=== PATIENT | male | born 1955 | race Caucasian/White ===

== ENCOUNTER 2023-02-20 05:43 | Day surgery (SDC) | payer MEDICARE, BC ==
[~2023-02-20] VITALS: Ht 188 cm; Wt 86.3 kg
[2023-02-20] VITALS (15 sets, daily range): BP systolic 138–177; BP diastolic 68–96; PULSE 63–90; RESP 13–19; TEMP 98.6; O2SAT 95–100
[~2023-02-20 05:43] MED LIST: DIAZ5TAB PO; OMEP20CA15 PO; RAME8TAB15 PO; VALA500T41; famotidine 20mg tablet PO ONE; oxymetazoline 15 ML nasal spray NS ONE; ringers solution, lacted 1,000 ML IV SCH; tranexamic acid inj. 1,000 MG in normal saline IV soln 100ML IV ONE
[2023-02-20] MEDS ORDERED: methylPREDNISolone acetate 80mg/ml inj**IM only ONE (06:38)
[2023-02-20] MEDS ORDERED: mupirocin 2% ointment 22GM ONE (06:38)
[2023-02-20] MEDS ORDERED: oxymetazoline 15 ML nasal spray NS ONE (06:38)
[2023-02-20] MEDS ORDERED: cocaine 4% topical solution 4ml bottle ONE (06:38)
[2023-02-20] MEDS ORDERED: epiNEPHrine 1 mg/ml 30ml MDV ONE (06:38)
[2023-02-20] MEDS ORDERED: LIDOcaine 1% W/epiNEPHrine 1:100,000 20ml vial ONE (06:38)
[2023-02-20] MEDS ORDERED: tranexamic acid 100mg/ml inj. ONE (06:40)
[2023-02-20] MEDS ORDERED: sevoflurane 250ml liquid IH ONE (08:13)
[2023-02-20] MEDS ORDERED: propofol inj 20 ML IV ONE (08:14)
[2023-02-20] MEDS ORDERED: fentaNYL/PF 50MCG/1 ML 2ML syringe ONE (08:14)
[2023-02-20] MEDS ORDERED: midazolam 1 mg/ML 2ml injection ONE (08:14)
[2023-02-20] MEDS ORDERED: ondansetron/PF 4mg/2ml inj ONE (08:43)
[2023-02-20] MEDS ORDERED: dexamethasone sod phosphate 4mg/ml inj. ONE (08:43)
[2023-02-20] MEDS ORDERED: ondansetron/PF 4mg/2ml inj IV PRN (08:55)
[2023-02-20] MEDS ORDERED: ringers solution, lacted 1,000 ML IV SCH (08:55)
[2023-02-20] MEDS ORDERED: proCHLORperazine 10 MG/2 ml inj IV PRN (08:55)
[2023-02-20] MEDS ORDERED: morphine 2 MG/ML inj. syringe IV PRN (08:55)
[2023-02-20] MEDS ORDERED: morphine 4 MG/ML inj SYRINge IV PRN (08:55)
[2023-02-20] MEDS ORDERED: meperidine/PF 25mg/ml syringe IV PRN ×3 (08:55)
--- NOTE | 2023-02-20 09:22 | NUR ---
Received from OR via [facility], accompanied by Anesthesiologist DR MICHAEL and report given by Anesthesiologist AND SHIPPING PACKER. PT DROWSY, DENIES PAIN, BILAT COTTONNOIDS IN PLACE, NO DRAINAGE. Addendum: 02/20/23 at 0947 by Jami Danielson RN Amended: Links added.
[2023-02-20] MEDS ORDERED: mupirocin 2% nasal ointment 1gm UD NS SCH (09:44)
[2023-02-20] MEDS ORDERED: oxymetazoline 15 ML nasal spray NS PRN (09:45)
[2023-02-20] MEDS ORDERED: salt irrigation nasal spray 45 ML SPRAY NS PRN (09:50)
[2023-02-20] MEDS: hydrALAZINE 20mg/ml inj. IV PRN ×3 (10:24→11:01)
--- NOTE | 2023-02-20 11:44 | NUR ---
PT UP AND STABLE W/AMBULATION, STATES HE IS COMFORTABLE, VOIDED X 1, GETTING DRESSED AND IS READY FOR DISCHARGE, WAITING FOR HIS TO [employer].
--- NOTE | 2023-02-20 12:12 | NUR ---
D/C instructions demonstrated, given and gone over w/pt who verbalized understanding. 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 Pt dc/d to home via W/C to private vehicle w/o incident. Addendum: 02/20/23 at 1254 by Jami Danielson RN Amended: Links added.
== END 2023-02-20 12:12 | disposition home or self-care (01) ==
LOC: PAS 05:43
PROVIDERS: ATTEND Otolaryngology
DX: J32.8 Other chronic sinusitis (principal); J33.8 Other polyp of sinus; J34.3 Hypertrophy of nasal turbinates; J45.909 Unspecified asthma, uncomplicated; F41.9 Anxiety disorder, unspecified; G47.00 Insomnia, unspecified; K21.9 Gastro-esophageal reflux disease without esophagitis; Z88.1 Allergy status to other antibiotic agents; Z98.890 Other specified postprocedural states; Z79.899 Other long term (current) drug therapy
CPT/HCPCS: 30140; 31255; 31267; 61782; 82948; 87070; 87075; 87102; 93005; A6402; J0171; J0360; J1100; J2175; J2250; J2405; J2704; J3010; J3490; J7030; J7050; J7120; Z7506; Z7508; Z7512; 87077; 87186; 88304; 88305; 88311; 88312; A4618; A6449; A7000; J1040